=== PATIENT | male | born 1975 | race Caucasian/White ===

== ENCOUNTER 2024-05-01 17:04 | Emergency (ER) | payer OTHER, SELFPAY ==
[2024-05-01] VITALS (7 sets, daily range): BP systolic 98–127; BP diastolic 72–83; PULSE 54–169; RESP 16–18; TEMP 36.3; O2SAT 95–99; BMI 30.8
--- NOTE | 2024-05-01 17:05 | ECG_ITS ---
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 Measurements Intervals [place] Rate: 59 P: 68 NE: 174 QRS: 85 QRSD: 104 T: 55 QT: 361 QTc: 360 Interpretive Statements SINUS BRADYCARDIA No previous ECG available for comparison Electronically Signed On 05-03-2024 01:04:18 INSTRUMENT MAKER AND REPAIRER by Tawanda Lakhani M.D. [email or web address]
--- NOTE | 2024-05-01 17:05 | XRR_ITS ---
PROCEDURE INFORMATION: Exam: XR Chest Exam date and time: 05/01/2024 5:29 PM Age: 49 years old Clinical indication: Pain; Chest pressure; Additional info: Cp TECHNIQUE: Imaging protocol: Radiologic exam of the chest. Views: 1 view. COMPARISON: No relevant prior studies available. FINDINGS: Tubes, catheters and devices: None. Lungs: Lung volumes are decreased. Mild bilateral perihilar and basilar interstitial lung opacities, suggesting pulmonary edema versus infiltrates. The peripheral lungs are otherwise clear. No consolidation. Linear density identified within bilateral lower lungs. The bilateral lung apices appear clear. Pleural spaces: No pleural effusion. No pneumothorax. Heart/Mediastinum: Cardiac silhouette appears moderately enlarged. Bones/joints: No acute bony abnormality identified. XR/XR chest 1V portable [id number] IMPRESSION: 1. Moderate enlarged cardiac silhouette. 2. Mild interstitial pulmonary edema versus infiltrates. 3. Linear bilateral lower chest pulmonary atelectasis, or scarring.
--- NOTE | 2024-05-01 17:10 | ECG_ITS ---
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 Measurements Intervals [place] Rate: 170 P: 0 W[place]: 0 QRS: 118 QRSD: 173 T: 71 QT: 284 QTc: 478 Interpretive Statements possible SVT with right bundle branch block pattern RIGHT BUNDLE BRANCH BLOCK [120+ ms QRS DURATION, UPRIGHT V1, 40+ ms S IN I/aVL/V4/V5/V6] LEFT POSTERIOR FASCICULAR BLOCK [QRS AXIS > 109, INFERIOR Q] ST DEPRESSION, CONSIDER SUBENDOCARDIAL INJURY [0.1+ mV ST DEPRESSION] CRITICAL TEST RESULT No previous ECG available for comparison Electronically Signed On 05-03-2024 01:13:01 COMPLIANCE OFFICER by Tawanda Lakhani M.D. [id number]
[2024-05-01] MEDS: adenosine 3 mg/mL SDV 2mL 12 MG IVP (17:24)
[2024-05-01 17:27] LABS: Basophils % 0.6 %; Eosinophils # 0.3 10^3/uL (0.0-0.8); Eosinophils % 4.3 %; Hematocrit 44.9 % (37-53); Lymphocytes # 3.5 10^3/uL (0.8-4.8); Lymphocytes % 50.4 %; Mean Corpuscular HGB Conc 34.3 g/dL (30-55); Mean Corpuscular Hemoglobin 30.1 pg (27-33); Mean Corpuscular Volume 87.7 fl (82-101); Mean Platelet Volume 9.7 fL (7.4-10.4); Monocytes # 0.4 10^3/uL (0.2-0.9); Monocytes % 6.4 %; Neutrophils # 2.61 10^3/uL (1.8-7.7); Neutrophils % 37.9 %; Nucleated Red Blood Cells % 0 %; Platelet Count 245 10^3/cmm (157-399); Red Blood Count 5.12 10^6/uL (3.85-5.65); Red Cell Distribution Width 13.1 % (12.1-15.1)
[2024-05-01 17:36] LABS: INR 0.99 (0.8-1.2)
[2024-05-01 17:43] LABS: Troponin(5th) Baseline 11 ng/L (0-15)
--- NOTE | 2024-05-01 17:57 | ED_ITS ---
Documented by User: Horacio Luna DO 05/03/24 05:40 HPI - Arrhythmia/Palpitations 2 General: Chief Complaint: Arrhythmia/Palpitations Stated Complaint: chest pain, affib, spt Time Seen by Provider: 05/01/24 17:19 History of Present Illness: 49-year-old male presents to the emergen cy room with a rapid heart rate. Patient has a known history of SVT and A-fib. He is on medications for he is on Rythmol and metoprolol he has not missed any doses lately. He is not really having any chest pain with that he has been a little short of breath because it is rapid. He is tolerating it very well in talking to him he had this multiple times before several years ago he had an angiogram that was normal with only been a rhythm issue he has had 2 different ablations and unfortunately still occasionally has some breakthrough tachycardias. Related Data Allergies Allergy/AdvReac Type Severity Reaction Status Date / Time No Known Allergies Allergy Verified 05/01/24 17:18 Review of Systems 2 Const: Denies: fever(s) or chills Card: Denies: chest pain Resp: Reports: dyspnea GI: Denies: abdominal pain : Denies: dysuria, urinary frequency or urinary urgency Musc: Denies: neck pain or back pain Skin/Breast: Denies: rash PFSH ED 2 PFSH: Medical History (Updated 05/01/24 @ 17:59 by Horacio Luna DO) SVT (supraventricular tachycardia) Physical Exam 2 Const: COMMON NORMALS: no acute distress GENERAL APPEARANCE: cooperative and comfortable ORIENTATION/CONSCIOUSNESS: Yes awake, Yes oriented to person, Yes oriented to place and Yes oriented to time HENMT: COMMON NORMALS: normocephalic, atraumatic and hearing grossly normal bilaterally HEAD & SCALP: normocephalic and atraumatic Resp: COMMON NORMALS: normal respiratory effort, No retractions, No use of accessory muscles and clear to auscultation bilaterally AUSCULTATION: clear to auscultation bilaterally Cardio: COMMON NORMALS: regular rhythm and No murmurs present (Cardio) R ATE: tachycardic RHYTHM: regular rhythm GI: COMMON NORMALS: Soft to palpation and No hepatosplenomegaly present A USCULTATION: Yes normoactive bowel sounds PALPATION: Yes Soft to palpation, No Tenderness to palpation present (GI), No Guarding due to palpation present (GI) and Yes No hepatosplenomegaly present Extremity: COMMON NORMALS: normal to inspection, capillary refill normal, no clubbing, cyanosis or edema, no calf tenderness and no pedal edema Neuro: SENSORIUM/ORIENTATION: Yes oriented to person, Yes oriented to place and Yes oriented to time Skin: COMMON NORMALS: no rashes or lesions noted GENERAL SKIN EXAM: no rashes or lesions noted Course 2 Vital Signs: Vital signs: Vital Signs Temperature 97.4 F L 05/01/24 17:14 Pulse Rate 54 L 05/01/24 19:40 Respiratory Rate 18 05/01/24 19:40 Blood Pressure 127/72 05/01/24 19:40 Pulse Oximetry 99 05/01/24 19:40 Oxygen Delivery Me thod Room Air 05/01/24 19:00 MDM - Arrhythmia/Palpitations Medical Decision Making Patient presents initially look like A-fib however after reviewing his rhythm strip it is actually SVT. He was given 12mg of adenosine patient had a significant sinus pause and then resumed within normal sinus rhythm and rate in the 60s. He feels much better his blood pressure is improved. Time this dictation we are waiting on chemistries and electrolytes. If these are normal I think he can safely be discharged. He is not due for his next dose of medications till this evening at bedtime when he usually takes it. Care signed out to Dr. Rosario at change of shift. See final notes for diagnosis and disposition. Lab Data I reviewed the patient's lab results. 05/01/24 17:20 05/01/24 17:20 Radiology Impressions Chest X-Ray 05/01/24 17:05 IMPRESSION: 1. Moderate enlarged cardiac silhouette. 2. Mild interstitial pulmonary edema versus infiltrates. 3. Linear bilateral lower chest pulmonary atelectasis, or scarring. Laboratory Results WBC 6.90 10^3/uL (3.29-11.43) 05/01/24 17:20 RBC 5.12 10^6/uL (3.85-5.65) 05/01/24 17:20 Hgb 15.40 g/dL (11.27-16.99) 05/01/24 17:20 Hct 44.9 % (37-53) 05/01/24 17:20 MCV 87.7 fl (82-101) 05/01/24 17:20 MCH 30.1 pg (27-33) 05/01/24 17:20 MCHC 34.3 g/dL (30-55) 05/01/24 17:20 RDW 13.1 % (12.1-15.1) 05/01/24 17:20 Plt Count 245 10^3/cmm (157-399) 05/01/24 17:20 MPV 9.7 fL (7.4-10.4) 05/01/24 17:20 Neut % (Auto) 37.9 % 05/01/24 17:20 Lymph % (Auto) 50.4 % 05/01/24 17:20 [place] % (Auto) 6.4 % 05/01/24 17:20 Eos % (Auto) 4.3 % 05/01/24 17:20 Baso % (Auto) 0.6 % 05/01/24 17:20 Neut # (Auto) 2.61 10^3/uL (1.8-7.7) 05/01/24 17:20 Lymph # (Auto) 3.5 10^3/uL (0.8-4.8) 05/01/24 17:20 [place] # (Auto) 0.4 10^3/uL (0.2-0.9) 05/01/24 17:20 Eos # (Auto) 0.3 10^3/uL (0.0-0.8) 05/01/24 17:20 Baso # (Auto) 0.0 10^3/uL (0.0-0.1) 05/01/24 17:20 Nucleated RBC % (auto) 0 % 05/01/24 17:20 Nucleated RBCs # 0.0 /100WBC 05/01/24 17:20 PT 13.40 SECONDS (12.1-14.9) 05/01/24 17:20 INR 0.99 (0.8-1.2) 05/01/24 17:20 Sodium 140 mmol/L (136-145) 05/01/24 17:20 Potassium 4.0 mmol/L (3.5-5.1) 05/01/24 17:20 Chloride 108 mmol/L (98-107) H 05/01/24 17:20 Carbon Dioxide 23 mmol/L (22-29) 05/01/24 17:20 Anion Gap 13.0 (5-19) 05/01/24 17:20 BUN 10 mg/dL (6-20) 05/01/24 17:20 Creatinine 1.2 mg/dL (0.7-1.2) 05/01/24 17:20 GFR Calculation 64.1 mL/min (90-130) L 05/01/24 17:20 Glucose 80 mg/dL (65-115) 05/01/24 17:20 Calculated Osmolality 288 mOsm/kg (285-295) 05/01/24 17:20 Calcium 9.0 mg/dL (8.5-10.5) 05/01/24 17:20 Total Bilirubin 0.4 mg/dL (0.15-1.2) 05/01/24 17:20 AST 12 U/L (0-40) 05/01/24 17:20 ALT 17 U/L (0-41) 05/01/24 17:20 Alkaline Phosphatase 86 U/L (40-130) 05/01/24 17:20 Troponin T Baseline 11 ng/L (0-15) 05/01/24 17:20 Troponin T 120 Minute 15.39 ng/L (0-15) H 05/01/24 19:11 Delta Troponin T 4.39 ABS# (0-10) 05/01/24 19:11 Total Protein 7.0 g/dL (6.6-8.7) 05/01/24 17:20 Albumin 4.6 g/dL (3.5-5.2) 05/01/24 17:20 Globulin 2.4 g/dL (1.3-4.6) 05/01/24 17:20 Lipase 60 U/L (13-60) 05/01/24 17:20 Discharge Plan Discharge Patient Disposition: Home Clinical Impression: Supraventricular tachycardia Condition: Stable Discharge Orders: Discharge ED (Routine); Ordered 05/01/24 Ordered By: Russ Rosario Patient Instructions: Opioid Safety, Pain Management Activity Restrictions/Additional Instructions: Thank you for choosing [facility] for your healthcare needs today. It is very important that you follow up as instructed or that you return to the Emergency Department should you have concerns or if your condition changes or worsens in any way. You were seen in the emergency room with an episode of SVT you converted with a single dose of adenosine. Continue your current medications follow-up with cardiology as previously scheduled. Coding Level of Care Code ED President Sales And Marketing for [employer] Documented by User: Russ Rosario DO 05/02/24 01:27 HPI - Arrhythmia/Palpitations 2 General: Chief Complaint: Arrhythmia/Palpitations Stated Complaint: chest pain, affib, spt Time Seen by Provider: 05/01/24 17:19 Related Data Allergies Allergy/AdvReac Type Severity Reaction Status Date / Time No Known Allergies Allergy Verified 05/01/24 17:18 PFSH ED 2 PFSH: Medical History (Updated 05/01/24 @ 17:59 by Horacio Luna DO) SVT (supraventricular tachycardia) Course 2 Vital Signs: Vital signs: Vital Signs Temperature 97.4 F L 05/01/24 17:14 Pulse Rate 54 L 05/01/24 19:40 Respiratory Rate 18 05/01/24 19:40 Blood Pressure 127/72 05/01/24 19:40 Pulse Oximetry 99 05/01/24 19:40 Oxygen Delivery Me thod Room Air 05/01/24 19:00 MDM - Arrhythmia/Palpitations Lab Data 05/01/24 17:20 05/01/24 17:20 Radiology Impressions Chest X-Ray 05/01/24 17:05 IMPRESSION: 1. Moderate enlarged cardiac silhouette. 2. Mild interstitial pulmonary edema versus infiltrates. 3. Linear bilateral lower chest pulmonary atelectasis, or scarring. Laboratory Results WBC 6.90 10^3/uL (3.29-11.43) 05/01/24 17:20 RBC 5.12 10^6/uL (3.85-5.65) 05/01/24 17:20 Hgb 15.40 g/dL (11.27-16.99) 05/01/24 17:20 Hct 44.9 % (37-53) 05/01/24 17:20 MCV 87.7 fl (82-101) 05/01/24 17:20 MCH 30.1 pg (27-33) 05/01/24 17:20 MCHC 34.3 g/dL (30-55) 05/01/24 17:20 RDW 13.1 % (12.1-15.1) 05/01/24 17:20 Plt Count 245 10^3/cmm (157-399) 05/01/24 17:20 MPV 9.7 fL (7.4-10.4) 05/01/24 17:20 Neut % (Auto) 37.9 % 05/01/24 17:20 Lymph % (Auto) 50.4 % 05/01/24 17:20 [place] % (Auto) 6.4 % 05/01/24 17:20 Eos % (Auto) 4.3 % 05/01/24 17:20 Baso % (Auto) 0.6 % 05/01/24 17:20 Neut # (Auto) 2.61 10^3/uL (1.8-7.7) 05/01/24 17:20 Lymph # (Auto) 3.5 10^3/uL (0.8-4.8) 05/01/24 17:20 [place] # (Auto) 0.4 10^3/uL (0.2-0.9) 05/01/24 17:20 Eos # (Auto) 0.3 10^3/uL (0.0-0.8) 05/01/24 17:20 Baso # (Auto) 0.0 10^3/uL (0.0-0.1) 05/01/24 17:20 Nucleated RBC % (auto) 0 % 05/01/24 17:20 Nucleated RBCs # 0.0 /100WBC 05/01/24 17:20 PT 13.40 SECONDS (12.1-14.9) 05/01/24 17:20 INR 0.99 (0.8-1.2) 05/01/24 17:20 Sodium 140 mmol/L (136-145) 05/01/24 17:20 Potassium 4.0 mmol/L (3.5-5.1) 05/01/24 17:20 Chloride 108 mmol/L (98-107) H 05/01/24 17:20 Carbon Dioxide 23 mmol/L (22-29) 05/01/24 17:20 Anion Gap 13.0 (5-19) 05/01/24 17:20 BUN 10 mg/dL (6-20) 05/01/24 17:20 Creatinine 1.2 mg/dL (0.7-1.2) 05/01/24 17:20 GFR Calculation 64.1 mL/min (90-130) L 05/01/24 17:20 Glucose 80 mg/dL (65-115) 05/01/24 17:20 Calculated Osmolality 288 mOsm/kg (285-295) 05/01/24 17:20 Calcium 9.0 mg/dL (8.5-10.5) 05/01/24 17:20 Total Bilirubin 0.4 mg/dL (0.15-1.2) 05/01/24 17:20 AST 12 U/L (0-40) 05/01/24 17:20 ALT 17 U/L (0-41) 05/01/24 17:20 Alkaline Phosphatase 86 U/L (40-130) 05/01/24 17:20 Troponin T Baseline 11 ng/L (0-15) 05/01/24 17:20 Troponin T 120 Minute 15.39 ng/L (0-15) H 05/01/24 19:11 Delta Troponin T 4.39 ABS# (0-10) 05/01/24 19:11 Total Protein 7.0 g/dL (6.6-8.7) 05/01/24 17:20 Albumin 4.6 g/dL (3.5-5.2) 05/01/24 17:20 Globulin 2.4 g/dL (1.3-4.6) 05/01/24 17:20 Lipase 60 U/L (13-60) 05/01/24 17:20 All radiology interpretation(s) finalized by discharge Discharge Plan Discharge Patient Disposition: Home Clinical Impression: Supraventricular tachycardia Condition: Stable Discharge Orders: Discharge ED (Routine); Ordered 05/01/24 Ordered By: Russ Rosario Patient Instructions: Opioid Safety, Pain Management Activity Restrictions/Additional Instructions: [facility] It is very important that you follow up as instructed or that you return to the Emergency Department should you have concerns or if your condition changes or worsens in any way. You were seen in the emergency room with an episode of SVT you converted with a single dose of adenosine. Continue your current medications follow-up with cardiology as previously scheduled. Coding Level of Care Code ED President Sales And Marketing for Vanna Huizar
[2024-05-01 18:00] LABS: Alanine Aminotransferase 17 U/L (0-41); Albumin Level 4.6 g/dL (3.5-5.2); Alkaline Phosphatase 86 U/L (40-130); Aspartate Amino Transferase 12 U/L (0-40); Blood Urea Nitrogen 10 mg/dL (6-20); Carbon Dioxide 23 mmol/L (22-29); Chloride 108 mmol/L (98-107); Creatinine Clr Calc Pharmacy 96.7342; Globulin 2.4 g/dL (1.3-4.6); Glomerular Filtration Rate 64.1 mL/min (90-130); Glucose 80 mg/dL (65-115); Lipase 60 U/L (13-60); Osmolality Calculated 288 mOsm/kg (285-295); Sodium 140 mmol/L (136-145); Total Bilirubin 0.4 mg/dL (0.15-1.2)
--- NOTE | 2024-05-01 18:00 | PC.NURSE ---
PT PRESENTS HR 180, MARCEL VERBALIZED 12 ADENOSINE TO BE PUSHED. 1723: PT HR 178 1724: 12 ADENOSINE PUSHED 1725: PT HR 65
[2024-05-01 19:31] LABS: Troponin 5 2HR 15.39 ng/L (0-15); Troponin 5 2HR Delta 4.39 ABS# (0-10)
== END 2024-05-01 19:41 | disposition home or self-care (01) ==
PROVIDERS: Emergency Medicine; Emergency Provider Family Medicine
DX: I47.10 Supraventricular tachycardia, unspecified (principal)
CPT/HCPCS: 36415; 71045; 80053; 83690; 84484; 85025; 85610; 93005; 96374; 99285; J0153